=== PATIENT | female | born 1935 | race Caucasian/White ===

== ENCOUNTER 2016-08-07 06:15 | Day surgery (SDC) | payer MEDICARE, BC ==
[2016-08-06 12:19] LABS: HEMATOCRIT 44.8 % (36.0-48.0); HEMOGLOBIN 14.2 g/dL (12-16); MCH 29.5 pg (26.0-34.0); MCHC 31.7 g/dL (31.0-37.0); MCV 93.1 fL (80.0-100.0); MEAN PLATELET VOLUME 11.5 fL (7.4-10.4); RBC 4.81 10x6/uL (4.00-5.40); RDW 13.5 % (11.5-14.5)
[2016-08-06 12:39] LABS: ANION GAP 14.3 mmol/L (8-16); CALCIUM 9.5 mg/dL (8.5-10.1); CARBON DIOXIDE 26.6 mmol/L (21.0-32.0); CREATININE - SERUM 0.8 mg/dL (0.6-1.3); POTASSIUM - SERUM 3.9 mmol/L (3.5-5.1)
[~2016-08-07] VITALS: Ht 165.1 cm; Wt 70.3 kg
[~2016-08-07 06:15] MED LIST: BENADRYL25 MG PO; CATAPRES0.1 MG PO; CRESTOR5 MG PO; ESTRACE 0.5 MG0.5 MG PO; GABAPENTIN100 MG PO; LOTENSIN20 MG PO; MACRODANTIN50 MG PO; NORVASC5 MG PO
[2016-08-07 07:03] VITALS: BP 184/86; Ht 165.1 cm; Wt 70.3 kg
--- NOTE | 2016-08-07 11:36 | NUR ---
1130--PT VOIDS WITHOUT DIFFICULTY, IV BORIS'Karla MCKEON RN
--- NOTE | 2016-08-07 13:23 | NUR ---
1155--DISCHARGE INSTRUCTIONS GIVEN, PT VERBALIZES UNDERSTANDING. PT OFF UNIT VIA WES. LINDA BERNARD
--- NOTE | 2016-08-08 09:34 | OP ---
PATIENT NAME: DINAH GALINDO MEDICAL RECORD: [id number] :39 [facility] ADMISSION DATE: SURGEON: MARCELINO LINARES MD DATE OF OPERATION: 08/07/2016 SURGEON: Marcelino Linares MD. ANESTHESIA: MAC by Marcelino Hdez MD. PREOPERATIVE DIAGNOSES: Urethral stricture, incomplete bladder emptying and frequent urinary tract infections. PROCEDURE: Cystoscopy, female urethral stricture dilation to 32-[place]. FINDINGS: Single ureteral orifice, mild bladder inflammation. No bladder tumors. Urethral stricture. SPECIMENS: None. COMPLICATIONS: None. ESTIMATED BLOOD LOSS: None. CLINICAL HISTORY: This is a 80-year-old female, who has frequent symptoms of urinary tract infections. When I examined her, she has vulvar atrophy and urethral stenosis. She has been using long-term antibiotics for some period of time now and I stopped her from doing it due to the risk of developing resistant organisms. Since she has had a history of ovarian cancer, she has not been on estrogen supplementation. When we checked her in the office, she had a postvoid residual of 180 mL. She was quite tender to examine in the vulvar area due to the vaginal atrophy. We will perform the urethral stricture dilation under sedation. SHE IS ALLERGIC TO NUMEROUS MEDICATIONS INCLUDING FLU VACCINE, CODEINE, HYDROCODONE, IODINE, PENICILLIN, SULFA AND CEPHALOSPORINS. We gave her Levaquin 250 mg IV for prophylactic antibiotics. She was prepped using dilute peroxide solution. DESCRIPTION OF PROCEDURE: The patient was given IV sedation. She was placed in the dorsal lithotomy position and prepped and draped. A 17-[place] cystoscope was used for visualization with a 30-degree lens. Normal saline for irrigation. She has single ureteral orifice. The dome of the bladder shows quite significant inflammation. No bladder tumors were seen. The bladder was then emptied through the cystoscope sheath. Starting from 20-[place], we moved up the dilators and using sounds dilated the urethra to 32-[place]. At the end of the procedure, the patient was brought to the preoperative holding area and when she is fully awake, she can be discharged home. I will see her in 2 weeks' time in the [facility]. TRANSINT:[id number] Voice Confirmation ID: [id number] DOCUMENT ID: [id number] OPERATIVE REPORT [id number] DINAH GALINDO MARCELINO LINARES MD at 0934 CC: [id number] DICTATION DATE: 08/07/16 0938 [facility]SE [facility]KER: 08/07/16 2140 [facility] 08/07/16 [id number] [place] [address]
== END 2016-08-07 11:55 | disposition home or self-care (01) ==
LOC: D.OPS 06:15 → D.PAN 08:30 → D.OPS 09:00 → D.PAN 09:15 → D.OPS 11:55
PROVIDERS: Anesthesiology
DX: N35.9 Urethral stricture, unspecified (principal); R33.9 Retention of urine, unspecified; Z88.1 Allergy status to other antibiotic agents; Z88.5 Allergy status to narcotic agent; Z88.0 Allergy status to penicillin; Z88.2 Allergy status to sulfonamides; Z88.7 Allergy status to serum and vaccine; Z88.8 Allergy status to other drugs, medicaments and biological substances; Z79.899 Other long term (current) drug therapy; Z85.43 Personal history of malignant neoplasm of ovary